=== PATIENT | male | born 1985 | race Caucasian/White ===

== ENCOUNTER 2022-06-22 07:58 | Outpatient (REF) | payer OTHER, SELFPAY ==
[2022-06-22 08:17] LABS: MANUAL DIFF FLAG NO
[2022-06-22 08:41] LABS: Basophils Absolute Auto 0.1 X10*3/uL (0.0-0.2); Basophils Percent Auto 0.6 % (0-2); Eosinophils Absolute Auto 0.2 X10*3/uL (0.0-0.4); Eosinophils Percent Auto 2.9 % (0-4); Hematocrit 43.8 % (42.0-52.0); Hemoglobin 15.5 g/dl (14.0-18.0); Imm Gran Abs Auto 0.01 X10*3/uL (0.00-0.03); Imm Gran Pct Auto 0.1 % (0.0-0.4); Lymphocytes Absolute Auto 3.3 X10*3/uL (1.2-4.9); Lymphocytes Percent Auto 40.3 % (20-40); Mean Corpuscular HGB Conc 35.4 g/dl (31.0-36.0); Mean Corpuscular Hemoglobin 31.1 pg (27.0-33.0); Mean Platelet Volume 8.7 fL (9.4-12.4); Monocytes Percent Auto 11.7 % (2-11); Neutrophils Absolute Auto 3.6 x10*3/uL (2.0-8.3); Neutrophils Percent Auto 44.4 % (45-73); Platelet Count 406 X10*3/uL (160-400); Red Blood Count 4.98 X10*6/uL (4.60-5.80); Red Cell Distribution Width 12.4 % (11.0-16.0); White Blood Count 8.1 X10*3/uL (4.8-10.8)
[2022-06-22 09:14] LABS: Alanine Aminotransferase 29 U/L (0-40); Albumin Level 4.4 g/dL (3.5-5.0); Alkaline Phosphatase 75 U/L (39-117); Anion Gap 13 (12-20); Aspartate Amino Transferase 17 U/L (5-37); Bilirubin Total 0.6 mg/dL (0.0-1.0); Blood Urea Nitrogen 17 mg/dL (9-16); Calcium 9.2 mg/dL (8.4-10.2); Carbon Dioxide 24 mmol/L (22-29); Chloride 104 mmol/L (96-108); Cholesterol 208 mg/dL; Estimated Glomerular Filt Rate > 60; Glucose Fasting 97 mg/dL (60-99); HDL Cholesterol 37 mg/dL; LDL Cholesterol Calculated 126 mg/dl; Potassium 4.4 mmol/L (3.3-5.1); Sodium 137 mmol/L (135-145); Total Protein 7.7 g/dL (6.5-8.0); Triglycerides 226 mg/dL
== END 2022-06-22 07:59 | disposition home or self-care (01) ==
LOC: HO.LAB 07:58
PROVIDERS: PCP Internal Medicine; Visit Provider Internal Medicine
DX: Z00.00 Encounter for general adult medical examination without abnormal findings (principal); Z13.220 Encounter for screening for lipoid disorders
CPT/HCPCS: 36415; 80053; 80061; 85025

== ENCOUNTER 2025-06-06 11:06 | Outpatient (AMB) | payer OTHER, SELFPAY ==
--- NOTE | 2025-06-06 08:54 | A.OFFPC_ITS ---
Vital Signs 06/06/25 11:15 Height 5 ft 10 in Weight 197 lb BMI 28.3 BP 126/80 Blood Pressure Location Rt brachial Position Sitting Pulse 92 Pulse Source Pulse Oximeter Temp 98.3 F Temp Source Axillary Pulse Oximetry (%) 98 Oxygen Delivery Method Room Air Intake Visit Reasons: left ear, static noise for a mo. Director Surgical Required: No Accompanied by: Self / Same As Patient Allergies No Known Allergies Allergy (Verified 06/06/25 08:54) Tobacco use date assessed: 06/06/25 Dental Screening Dental Screen Date: 06/06/25 Did you have a dental visit in the last 12 months?: Yes Did you have a dental problem in the last 6 months where you did not have access to dental care?: No [facility] Medical History (Updated 06/06/25 @ 11:50 by Richard Royal MD) Tinnitus Family History Mother No problems noted. Father No problems noted. Social History Patient Tobacco Use Status: Former Tobacco user e-Cigarette/Vaping Use: Former Use service: No Current occupational status: employed Cognitive needs: No Hearing needs: No Vision needs: Yes (rx glasses) Questionnaire PHQ-9 Over the last 2 weeks, how often have you been bothered by any of the following problems? 1. Little interest or pleasure in doing things: not at all 2. Feeling down, depressed, or hopeless: not at all 3. Trouble falling or staying asleep, or sleeping too much: not at all 4. Feeling tired or having little energy: not at all 5. Poor appetite or overeating: not at all 6. Feeling bad about yourself - or that you are a failure or have let yourself or your family down: not at all 7. Trouble concentrating on things, such as reading the newspaper or watching television: not at all 8. Moving or speaking so slowly that other people could have noticed. Or the opposite - being so fidgety or restless that you have been moving around a lot more than usual: not at all 9. Thoughts that you would be better off or of hurting yourself in some way: not at all Total score: 0 Depression Screening Interpretation: Negative Depression Screening Done: Yes Source: Developed by Drs. Norris Luna, Kayla Montoya, Sabas Francisco and colleagues, with an educational janae from [employer]. Thrive Questionnaire Date Thrive assessed: 06/06/25 I am a: Patient Within the past 12 months, did the food you bought not last and you didn't have the money to get more?: Never true Within the past 12 months, did you worry whether your food would run out before you got money to buy more?: Never true Do you have trouble paying for medicines?: No Do you have trouble getting transportation to medical appointments?: No Do you have trouble paying your heating and electricity bill?: No Do you have trouble taking care of your child, family member or friend?: No Do you have trouble with day-to-day activities such as bathing, preparing meals, shopping, managing finances, etc.?: No Are you currently unemployed and looking for a job?: No Are you interested in more education?: No THRIVE Score: 0 AUDIT C Alcohol Use Questionnaire (AUDIT-C) 1. How often do you have a drink containing alcohol?: Monthly or less 2. How many drinks containing alcohol do you have on a typical day when you are drinking?: 1 or 2 3. How often do you have six or more drinks on one occasion?: Less than monthly Total Score: 2 DINORA-7 AMB Questionnaire DINORA-7 Date DINORA - 7 assessed: 06/06/25 Feeling nervous, anxious, or on edge: 0 = Not at all Not being able to stop or control worryin = Not at all Worrying too much about different things: 0 = Not at all Trouble relaxin = Not at all Being so restless that it is hard to sit still: 0 = Not at all Becoming easily annoyed or irritable: 0 = Not at all Feeling afraid as if something awful might happen: 0 = Not at all Total DINORA-7 score (0-4 normal; 5-9 mild; 10-14 moderate; 15-21 severe): 0 Source: Developed by Drs. Norris Luna, Sabas Patel and colleagues, with an educational janae from [employer]. Physical exam (Primary Care) Vital Signs: Last Vital Signs Temp 98.3 F 06/06/25 11:15 Pulse 92 06/06/25 11:15 BP 126/80 06/06/25 11:15 Pulse Ox 98 06/06/25 11:15 Oxygen Delivery Method Room Air 06/06/25 11:15 BMI result Body Mass Index 28.3 Tobacco/Smoking Status: Tobacco use Status Tobacco use date assessed 06/06/25 06/06/25 08:56 Patient Tobacco Use Status Former Tobacco user 06/06/25 11:19 e-Cigarette/Vaping Use Former Use 06/06/25 11:19 PHQ-9: PHQ-9 Score PHQ-9: Total score 0 06/06/25 11:50 Depression Screening Interpretation: Negative Thrive Assessment: Date of Thrive Assessment Date Thrive assessed 06/06/25 06/06/25 08:56 Office Procedures Cerumen Removal From which ear canal was the cerumen removed: bilateral Removal: irrigation and cerumen loop/spoon Notes: patient tolerated procedure well, no complications and ear canal clear [id number] Wax Removal by Spoon/Curette Coding Level of Care Code New Pt Level 4 (79314) Complex EM visit Add On G2211 Diagnoses Tinnitus H93.19 CPT Codes Office Procedure - CPT: 34330-Pbi Wax Removal by Spoon/Curette ([id number]) Assessment & Plan Assessment & Plan (1) Tinnitus: Code(s): H93.19 - Tinnitus, unspecified ear Category: Medical Plan: Ear canal irrigation done, flonase added to the regimen,. ENT appt for evaluation of tinnitus done. Plan History of Present Illness - The patient is a 39-year-old male presenting with tinnitus. - The tinnitus began approximately two months ago and is described as a static or ringing noise, primarily in one ear. - The patient initially suspected ear wax buildup and attempted [id number] ear wax removal treatments without success. - Despite the tinnitus, the patient reports no difficulty with hearing, including during phone conversations or while watching television. - The patient denies any recent infections, allergies, or other systemic symptoms. 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 - Current status: On summer break for two more weeks. Review of Systems - Auditory: Reports tinnitus for two months. Denies hearing loss. - General: Denies recent infections, allergies, or systemic symptoms. Physical Exam General: Cooperative and healthy appearing Nutritional Appearance: Well nourished Orientation/consciousness: Patient oriented x3 Limitations: No limitations Head: Normal to inspection General: Appearance normal, both eyes and all related structures Neck: Normal visual inspection Chest: Normal palpation of entire chest wall Respiratory: Normal respiratory effort Neurology: Patient oriented x3 Results Plan 1. Tinnitus - Plan to clean out the minimal ear wax present in the affected ear. Discussion Notes I discussed with the patient the presence of minimal ear wax in the affected ear and the plan to clean it out to potentially alleviate the tinnitus symptoms. Patient Instructions - Follow up if symptoms persist or worsen after ear wax removal. Orders: Orders AMB Cerumen Removal Today H61.23 - Impacted cerumen, bilateral Referrals Ear/Nose/Throat Referral H93.19 - Tinnitus, unspecified ear
[2025-06-06 11:15] VITALS: BP 126/80; PULSE 92; TEMP 36.8; O2SAT 98; BMI 28.3
== END 2025-06-06 12:09 | disposition home or self-care (01) ==
LOC: HO.HMCHD 11:07
PROVIDERS: PCP Internal Medicine; Visit Provider Internal Medicine
DX: H93.19 Tinnitus, unspecified ear (principal); H61.23 Impacted cerumen, bilateral

== ENCOUNTER → 2025-06-06 11:06 | Outpatient (BNVA) | payer OTHER, SELFPAY | PROVIDERS: PCP Internal Medicine; Visit Provider Internal Medicine | DX: H61.23 Impacted cerumen, bilateral (principal); H93.19 Tinnitus, unspecified ear | CPT/HCPCS: 69210 ==